=== PATIENT | female | born 1980 | race Caucasian/White ===

== ENCOUNTER 2017-11-09 19:19 | Emergency (ER) | payer OTHER ==
[~2017-11-09] VITALS: Ht 160 cm; Wt 64.6 kg
[2017-11-09] MEDS ORDERED: FIORICET 50-301 EAC1 PO (21:31)
[2017-11-09 21:36] VITALS: BP 131/84
== END 2017-11-09 21:37 | disposition home or self-care (01) ==
LOC: EME 19:19
DX: R51 Headache (principal); K50.90 Crohn's disease, unspecified, without complications; Z88.0 Allergy status to penicillin
CPT/HCPCS: 70450; 99281; 99284; J0780; J1100; J1885; J7030